=== PATIENT | male | born 1965 | race Caucasian/White ===

== ENCOUNTER 2016-10-09 10:18 | Emergency (ER) | payer MEDICAID ==
[~2016-10-09] VITALS: Ht 167.6 cm; Wt 89.0 kg
[2016-10-09 10:27] VITALS: Ht 167.6 cm; Wt 89.0 kg
[2016-10-09] MEDS ORDERED: ACETAMINOPHEN 325 MG TAB PO ONE (11:30)
--- NOTE | 2016-10-09 12:55 | RADRPT ---
PROCEDURE: CT head without Contrast CLINICAL INDICATION: Head injury, dizziness TECHNIQUE: Transaxial images were made through the head on a multi-slice scanner without intraveno us contrast. Coronal and sagittal images were subsequently reformatted. One or more of the following dose reduction techniques were used: - Automated exposure control. - Adjustment of the mA and/or kV according to patient size. - Use of iterative reconstruction technique. Radiation dose: CTDIvol = 45.01 mGy; DLP = 720.23 mGy-cm. COMPARISON: None FINDINGS: The calvarium appears intact. The mastoid air cells and paranasal sinuses are well-aerated.. The ventricles are normal in size and there is no midline shift. No intracranial bleed, mass, or extra-axial fluid collection is identified. There is good barber-white matter differentiation. IMPRESSION: Unremarkable noncontrast enhanced CT scan of the head. Physician Padmini Date Time Electronically viewed and signed by Physician Padmini on 10/09/2016 12:54 /
[2016-10-09] MEDS ORDERED: ACET500C5 PO (13:04)
[2016-10-09 13:12] VITALS: BP 128/83; PULSE 64; RESP 18; TEMP 97.9
--- NOTE | 2016-10-09 15:49 | ERD ---
ER Documentation Chief Complaint Date/Time DATE: 10/09/16 TIME: 15:44 Chief Complaint Pt with top of head LAC after hiting the back of van with head. No bleeding HPI 51-year-old male patient presents to the ED complaining of accidentally hitting the top of the head to the ceiling. Reports that he felt some transient dizziness while driving here to the ED. States that he sustained a laceration on the top of his head however the bleeding sustained itself. Denies any loss of consciousness. Denies any nausea, vomiting, chest pain, shortness of breath , abdominal pain, weakness, numbness or tingling. ROS All systems reviewed and are negative except as per history of present illness. Medications Home Meds Active Scripts Acetaminophen* (Tylophen*) 500 Mg Capsule, 1 CAP PO Q6H Y for PAIN AND OR ELEVATED TEMP, #20 CAP Prov:DAX BECKWITH PA-C 10/09/16 Allergies Allergies: Coded Allergies: No Known Allergy (Unverified , 10/09/16) PMhx/Soc Medical and Surgical Hx: pt denies Medical Hx, pt denies Surgical Hx Hx Alcohol Use: Yes (social) Hx Substance Use: No Hx Tobacco Use: Yes Smoking Status: Current some day smoker Physical Exam Vitals Vital Signs Date Time Temp Pulse Resp B/P Pulse Ox O2 Delivery O2 Flow Rate FiO2 10/09/16 13:12 97.9 64 18 128/83 97 10/09/16 10:27 97.0 76 18 128/83 96 Physical Exam Const: [id number], well-nourished. In no acute distress. Head: Atraumatic, normocephalic. No valentine sign. No raccoon eyes. 2 cm laceration noted on the left anterior scalp. Eyes: Normal Conjunctiva without injection. No purulent discharge. PERRLA. EOMI ENT: Normal external ear. Ear canal without erythema. Tympanic membrane pearly barber without effusion or bulging. No hemotympanum. Nasal canal clear with normal turbinates. Moist oropharynx without tonsillar exudates. Non- erythematous pharynx. Uvula midline. No drooling. No trismus. Neck: No cervical midline tenderness. Full range of motion. No meningismus. No cervical lymphadenopathy. No JVD. Resp: Clear to auscultation bilaterally. No wheezing, rhonchi, rales, or crackles. No accessory muscle use. No retractions. Cardio: Regular rate and rhythm. No murmurs, rubs or gallops. Abd: Soft, non tender, non distended. Normal bowel sounds. No palpable masses. No rebound tenderness. No guarding. Negative McBurney's Point. Negative Belle's Sign. Skin: Normal skin turgor. No petechiae or rashes Back: No midline tenderness. No CVA tenderness. Ext: No cyanosis, or edema. Distal pulses intact bilaterally. Neur: Awake and alert. Normal gait. Normal coordination. Cranial Nerves II- VII intact. Normal finger to nose. Muscle strength 5/5. Sensation intact. Psych: Normal Mood and Affect Results 24 hrs Current Medications Medications (Trade) Dose Ordered Sig/Delisa Route PRN Reason Start Time Stop Time Status Last Admin Dose Admin Acetaminophen (Tylenol Tab) 650 mg ONCE ONCE PO 10/09/16 11:30 10/09/16 11:38 DC 10/09/16 11:24 Procedures/MDM 51-year-old male patient presents to the ED with no significant past medical history hitting his head to the top of the ceiling of the van. Patient is afebrile and nontoxic-appearing. Since patient experienced some transient dizziness, a CT of the brain without contrast is ordered to further evaluate patient. Patient was treated here in the ED with Tylenol with improvement of his pain. Patient gave consent to perform laceration repair. Laceration Repair by me: Anesthesia: None Location: Left anterior scalp Tendon/Joint/Nerves: No injury Foreign body: None detected after copious irrigation and exploration Technique: 2 andres Complexity: No subcutaneous sutures/mucosal repair/ edge excision Post Closure Length: [2] cm Patient's bleeding was easily controlled in the department and there is no indication of anemia. Patient is neurovascularly intact. No evidence of compartment syndrome, neurologic injury, vascular injury, open joint, tendon laceration, or foreign body. Patient is appropriate for outpatient follow up. 48 hour wound check. Scar minimization instructions given. Instructed patient to return for staple removal in 5-7 days. Tylenol was prescribed for pain. Instructed patient to return to the ED sooner for any worsening symptoms. Follow up with primary care physician in 1-2 days. Patient's questions were answered. Patient understood and agreed with discharge plan. Departure Diagnosis: Primary Impression: Head injury Encounter type: initial encounter Qualified Code: S09.90XA - Head injury, initial encounter Additional Impression: Scalp laceration Encounter type: initial encounter Qualified Code: S01.01XA - Scalp laceration, initial encounter Condition: Stable Patient Instructions: First Aid: Head Injuries, HEAD INJURY, No Wake-Up (Adult) , Laceration, Scalp Referrals: [facility], [facility] YOU HAVE RECEIVED A MEDICAL SCREENING EXAM AND THE RESULTS INDICATE THAT YOU DO NOT HAVE A CONDITION THAT REQUIRES URGENT TREATMENT IN THE EMERGENCY DEPARTMENT. FURTHER EVALUATION AND TREATMENT OF YOUR CONDITION CAN WAIT UNTIL YOU ARE SEEN IN YOUR DOCTORS OFFICE WITHIN THE NEXT 1-2 DAYS. IT IS YOUR RESPONSIBILITY TO MAKE AN APPOINTMENT FOR FOLOW-UP CARE. IF YOU HAVE A PRIMARY DOCTOR --you should call your primary doctor and schedule an appointment IF YOU DO NOT HAVE A PRIMARY DOCTOR YOU CAN CALL OUR PHYSICIAN REFERRAL HOTLINE AT IF YOU CAN NOT AFFORD TO SEE A PHYSICIAN YOU CAN CHOSE FROM THE FOLLOWING [facility] [address] [facility]. [facility] [address] [facility] [facility] [address] [facility] [facility] [address] [facility] [address] [facility]. [facility] [address] [facility]. [facility] YOU HAVE RECEIVED A MEDICAL SCREENING EXAM AND THE RESULTS INDICATE THAT YOU DO NOT HAVE A CONDITION THAT REQUIRES URGENT TREATMENT IN THE EMERGENCY DEPARTMENT. FURTHER EVALUATION AND TREATMENT OF YOUR CONDITION CAN WAIT UNTIL YOU ARE SEEN IN YOUR DOCTORS OFFICE WITHIN THE NEXT 1-2 DAYS. IT IS YOUR RESPONSIBILITY TO MAKE AN APPOINTMENT FOR FOLOW-UP CARE. IF YOU HAVE A PRIMARY DOCTOR --you should call your primary doctor and schedule and appointment IF YOU DO NOT HAVE A PRIMARY DOCTOR YOU CAN CALL OUR PHYSICIAN REFERRAL HOTLINE AT . IF YOU CAN NOT AFFORD TO SEE A PHYSICIAN YOU CAN CHOSE FROM THE FOLLOWING [facility] IN[facility]UT[facility]: [facility] [id number] [place] [address] [facility] [address] [place] [address] [facility] + [facility] [address] [place] [address] [facility] URGENT CARE/SPECIALTIES Additional Instructions: Follow up in 2 days in your clinic for wound check. Follow up with your physician to remove the stitches/andres:For Face/Scalp wounds 5-7 days. For Elsewhere on the body 7-10 days. Call your primary care doctor TOMORROW for an appointment during the next 2 days.See the doctor sooner or return here if your condition worsens before your appointment time. DAX BECKWITH PA-C Oct 09, 2016 15:49
== END 2016-10-09 13:14 | disposition home or self-care (01) ==
LOC: FTE 10:18
DX: S01.01XA Laceration without foreign body of scalp, initial encounter (principal); F17.210 Nicotine dependence, cigarettes, uncomplicated; W22.8XXA Striking against or struck by other objects, initial encounter; Y92.818 Other transport vehicle as the place of occurrence of the external cause
CPT/HCPCS: 12001; 70450; Z7502; Z7610

== ENCOUNTER 2016-10-23 13:01 | Emergency (ER) | payer MEDICAID ==
[~2016-10-23] VITALS: Ht 170.2 cm; Wt 90.0 kg
[~2016-10-23 13:01] MED LIST: ACET500C5 PO
[2016-10-23 13:03] VITALS: Ht 170.2 cm; Wt 90.0 kg
--- NOTE | 2016-10-23 13:26 | ERD ---
ER Documentation Chief Complaint Date/Time DATE: 10/23/16 Chief Complaint Staple removal HPI The patient is a 51-year-old male who presents to the Emergency Department for removal of andres placed to the scalp on 10/09/2016. The patient initially injured himself when he accidentally hit the top of his head against the ceiling of his car. He had no loss of consciousness, no syncope, no seizure- like activity. Since the staple placement, he has not had any confusion, dizziness, vomiting, weakness, chest pain, palpitations or shortness of breath. No numbness or weakness of the distal extremities. No redness, swelling, drainage or further bleeding from the site of the laceration. He notes no current pain at this time. ROS All systems reviewed and are negative except as per history of present illness. Medications Home Meds Active Scripts Acetaminophen* (Tylophen*) 500 Mg Capsule, 1 CAP PO Q6H Y for PAIN AND OR ELEVATED TEMP, #20 CAP Prov:DAX BECKWITH PA-C 10/09/16 Allergies Allergies: Coded Allergies: No Known Allergy (Unverified , 10/23/16) PMhx/Soc Hx Alcohol Use: Yes (social) Hx Substance Use: No Hx Tobacco Use: Yes Physical Exam Vitals Vital Signs Date Time Temp Pulse Resp B/P Pulse Ox O2 Delivery O2 Flow Rate FiO2 10/23/16 14:23 98.1 10/23/16 13:03 98.2 84 20 119/75 99 Physical Exam Const: Well-developed, well-nourished, in no acute distress. Head: Normocephalic. 2 andres overlying a well-healed, well-approximated 2- cm laceration to the left anterior scalp. No wound dehiscence. No bleeding. No drainage. No hematomas. Eyes: Normal Conjunctiva ENT: Normal External Ears, Nose and Mouth. Neck: Supple. Resp: Normal respiratory effort. Cardio: Normal peripheral perfusion. Skin: 2-cm well-healed laceration to the left anterior scalp with [address] Ext: No cyanosis, or edema Neur: Awake and alert. No focal deficits. Psych: Cooperative. Appropriate. Procedures/MDM PROCEDURE NOTE: Staple Removal PROCEDURE: Removal of previously placed andres DESCRIPTION OF REPAIR: The wound demonstrates no evidence of infection with adequate tensile strength at the wound margins at this time to warrant staple removal. Trezevant were removed individually using a standard staple remover, with a total of 2 andres removed. Re-examination of the wound following the procedure reveals no evidence of any retained foreign bodies and no dehiscence. The patient tolerated the procedure well without complications. Standard post- procedure care was explained and return precautions were given. MEDICAL DECISION MAKING: This is a 51-year-old male presenting to the Emergency Department for for removal of previously placed andres to the scalp 10/09/2016. The patient had no significant acute abnormalities on physical examination, and vital signs were stable. He had good wound closure and good wound approximation , with no evidence of dehiscence. The wound is clean, dry and intact with no evidence of purulent drainage, bleeding or infection. Andres were removed with no present complications. At this time, the patient is in stable condition and therefore can be discharged home with strict return precautions for signs of deteriorating or worsening condition, the development of any erythema, drainage, infection, fevers, or any other concerning symptoms. The patient is instructed to follow up with their primary care provider for reevaluation and further management within 2 to 3 days, or to return to the ER sooner for any new or worsening symptoms. I shared my medical decision making and plan with the patient and they verbally understand and agree with the plan for further observation and care as an outpatient. At the time of discharge all questions were answered. Departure Diagnosis: Primary Impression: Encounter for removal of andres Condition: Stable Patient Instructions: Staple Removal, No Complication Additional Instructions: Call your primary care doctor TOMORROW for an appointment during the next 2-3 days.See the doctor sooner or return here if your condition worsens before your appointment time. MAICO WHEELER PA-C Oct 23, 2016 13:26
[2016-10-23 14:23] VITALS: TEMP 98.1
== END 2016-10-23 13:41 | disposition home or self-care (01) ==
LOC: FTE 13:01
DX: Z48.02 Encounter for removal of sutures (principal)
CPT/HCPCS: 99281